=== PATIENT | male | born 1980 | race Caucasian/White ===

== ENCOUNTER → 2020-09-06 | Outpatient (CLI) | payer BC ==
--- NOTE | 2020-09-06 18:09 | RAD ---
XR CHEST 2V INDICATION: Reason: SHORTNESS OF BREATH / Spl. Instructions: / History: . COMPARISON STUDY: None. FINDINGS: Lungs: Low lung volume. No confluent consolidation. Pleura: No pleural effusion or pneumothorax. Heart and Mediastinum: Cardiomegaly. The great vessels of the thorax are normal. Bones and Soft Tissues: The bones and soft tissues are within normal limits. IMPRESSION: Low lung volume. No confluent consolidation. Electronically signed by: Jose Elias Gr MD (09/06/2020 6:06 PM) [facility]Jason
== END ==
LOC: PMG 16:56
PROVIDERS: ATTEND Nurse Practitioner Family
DX: I51.7 Cardiomegaly (principal)
CPT/HCPCS: 71046